=== PATIENT | female | born 1940 | race Caucasian/White ===

== ENCOUNTER → 2017-12-13 08:44 | Outpatient (CLI) | payer MEDICARE, OTHER ==
--- NOTE | ~2017-12-13 | EC ---
PATIENT:JEROME MAZARIEGOS DATE OF SERVICE: 12/13/17 SEX: F MEDICAL RECORD: [id number] DATE OF : 42 LOCATION:D.RT AGE OF PATIENT: 77 ADMISSION DATE: 12/13/17 REFERRING PHYSICIAN: INTERPRETING PHYSICIAN: SALLY KEANE MD ECHOCARDIOGRAM REPORT ECHO CHARGES 4 ECHO COMPLETE Date: 12/13 CLINICAL DIAGNOSIS: PULMONARY HTN/COPD/ IDIOPATHIC PULMONARY FIBROSIS ECHOCARDIOGRAPHIC MEASUREMENTS (adult normal given) AC root (d.<3.7cm) 3.3 cm LV Septum d (<1.2 cm> 1.5 cm Valve Excursion 1.9 cm LV Septum (systole) 1.9 cm Left Atria (s.<4.0cm> 3.6 cm LVPW d(<1.2cm) 1.2 cm RV (d.<2.3cm) 2.5 cm LVPW (sytole) 1.8 cm LV diastole(<5.6CM) 5.3 cm MV E-F(>70mm/sec) cm LV systole 3.4 cm LVOT Diameter 1.9 cm MV exc.(>10mm) cm Est.ejection fraction (50-75%) % DOPPLER: LVIT cm/sec A 40.0 cm/sec E 105 cm/sec LA cm/sec RVSP 98.1 mmHg LVOT 86.0 cm/sec AOP1/2T 510.0m/s Asc. Ao 141 cm/sec RVOT 59.0 cm/sec RA cm/sec PA 77.0 cm/sec AV Gradient Peak 8.0 mmHg AV Mean 3.6 mmHg AV Area 1.7 cm MV Gradient Peak 6.0 mmHg MV Mean 1.9 mmHg MV Area cm COMMENTS: Clinical Specialty Rep: 1 NIRMAL WELLERDSOE Drug Department Worker: 4 Dr. Keane TAPE# PACS Pericardial Effusion N DATE OF SERVICE: PROCEDURE: Transthoracic echocardiogram. FINDINGS: 1. Left ventricle has moderate concentric left ventricular hypertrophy, ejection fraction 50% to 55%. Inflow characteristics are abnormal, but in a pseudonormal pattern. 2. The left atrium is upper limits of normal. 3. The aortic valve, there is mild aortic insufficiency, but otherwise normal. ECHOCARDIOGRAM REPORT [id number] JEROME MAZARIEGOS 4. The mitral valve has severe centrally directed mitral regurgitation. 5. The pericardium is normal. 6. The right ventricle is mildly dilated. 7. The right atrium is mildly dilated. 8. The tricuspid valve has severe tricuspid regurgitation. RVSP is between 90 and 100 mmHg. CONCLUSIONS: The patient has severe mitral regurgitation, severe pulmonary hypertension, severe tricuspid regurgitation. Further evaluation and treatment may be reasonable in this patient. TRANSINT:[id number] Voice Confirmation ID: [id number] DOCUMENT ID: [id number] SALLY KEANE MD at 0819 CC: [id number] DICTATION DATE: 12/14/17826 LICENSED PSYCHOLOGIST MANAGER: 12/14/17 1405 DEP CLI 12/13/17 [facility] [address] [place] [address]
== END | disposition home or self-care (01) ==
LOC: D.RT 08:44
DX: J84.112 Idiopathic pulmonary fibrosis (principal)

== ENCOUNTER → 2018-04-24 16:08 | Outpatient (CLI) | payer MEDICARE, OTHER | END | disposition home or self-care (01) | LOC: D.MRI 16:08 | DX: M54.16 Radiculopathy, lumbar region (principal) ==

== ENCOUNTER → 2018-06-11 09:06 | Outpatient (CLI) | payer MEDICARE, OTHER ==
--- NOTE | ~2018-06-11 | EC ---
PATIENT:JEROME MAZARIEGOS DATE OF SERVICE: 06/11/18 SEX: F MEDICAL RECORD: [id number] DATE OF : 42 LOCATION:D.RT AGE OF PATIENT: 77 ADMISSION DATE: 06/11/18 REFERRING PHYSICIAN: INTERPRETING PHYSICIAN: TRAMAINE WOOTEN MD ECHOCARDIOGRAM REPORT ECHO CHARGES 4 ECHO COMPLETE Date: 06/11/18 CLINICAL DIAGNOSIS: COPD/PULMONARY FIBROSIS/ ARTERIAL HTN ECHOCARDIOGRAPHIC MEASUREMENTS (adult normal given) AC root (d.<3.7cm) 3.7 cm LV Septum d (<1.2 cm> 1.0 cm Valve Excursion 2.0 cm LV Septum (systole) 1.7 cm Left Atria (s.<4.0cm> 5.0 cm LVPW d(<1.2cm) 1.1 cm RV (d.<2.3cm) 2.3 cm LVPW (sytole) 1.7 cm LV diastole(<5.6CM) 6.1 cm MV E-F(>70mm/sec) cm LV systole 3.7 cm LVOT Diameter 1.9 cm MV exc.(>10mm) cm Est.ejection fraction (50-75%) % DOPPLER: LVIT cm/sec A 38.0 cm/sec E 103 cm/sec LA cm/sec RVSP 64.0 mmHg LVOT 76.0 cm/sec AOP1/2T m/s Asc. Ao 113 cm/sec RVOT 80.0 cm/sec RA cm/sec PA 92.0 cm/sec AV Gradient Peak 5.2 mmHg AV Mean 2.4 mmHg AV Area 1.7 cm MV Gradient Peak 4.9 mmHg MV Mean 1.6 mmHg MV Area cm COMMENTS: Feeder Switchboard Operator: Yessenia POOLEOE Field Coordinator: 1 Dr. Wooten TAPE# PACS Pericardial Effusion N DATE OF SERVICE: 06/11/2018 PROCEDURE: Echocardiogram FINDINGS: 1. Left ventricular chamber size is mildly dilated. Left ventricular systolic function is preserved at 55%. 2. Left atrium is enlarged at 5.0 cm. Right atrium and right ventricle chamber sizes are as well moderately dilated. 3. Valvular structures have normal structure and motion. ECHOCARDIOGRAM REPORT [id number] JEROME MAZARIEGOS 4. Doppler interrogation reveals trace aortic insufficiency, moderate mitral regurgitation, [id number] tricuspid regurgitation, no other valvular insufficiency or stenosis. Pulmonary systolic pressure is elevated estimated 64 mmHg. 5. No evidence of pericardial effusion or left ventricular thrombus. TRANSINT:[id number] Voice Confirmation ID: [id number] DOCUMENT ID: [id number] TRAMAINE WOOTEN MD at 1059 CC: [id number] DICTATION DATE: 06/11/18 1254 BLOW MOLD TECHNICIAN: 06/11/18 1406 DEP CLI 06/11/18 [place] [id number] [place] [id number]
== END | disposition home or self-care (01) ==
LOC: D.RT 09:00
DX: J84.112 Idiopathic pulmonary fibrosis (principal); J44.9 Chronic obstructive pulmonary disease, unspecified; I27.0 Primary pulmonary hypertension

== ENCOUNTER → 2018-06-22 16:42 | Outpatient (CLI) | payer MEDICARE, OTHER | END | disposition home or self-care (01) | LOC: D.LABREF 16:42 | DX: M19.011 Primary osteoarthritis, right shoulder (principal); Z11.8 Encounter for screening for other infectious and parasitic diseases ==

== ENCOUNTER 2018-08-09 10:44 | Inpatient (IN) | payer MEDICARE, OTHER ==
[~2018-08-09] VITALS: Ht 165.1 cm; Wt 74.4 kg
--- NOTE | ~2018-08-09 | OP ---
PATIENT NAME: JEROME MAZARIEGOS MEDICAL RECORD: [id number] :42 LOCATION:D.MS Aragon2229 ADMISSION DATE:08/13/18 SURGEON: CAROL QUEZADA MD DATE OF OPERATION: 08/14/2018 PREOPERATIVE DIAGNOSIS: Postoperative dislocation of a right reverse total shoulder arthroplasty. POSTOPERATIVE DIAGNOSIS: Postoperative dislocation of a right reverse total shoulder arthroplasty. PROCEDURE: Revision right reverse total shoulder arthroplasty. SURGEON: Carol Quezada MD. ALUMNI SECRETARY: Oscar Rivas APN. INTRAOPERATIVE COMPLICATIONS: Essentially none. SUMMARY OF PATHOLOGIC FINDINGS: It was found at the time of surgery that the patient had a soft tissue bony prominence at the base of the metaglene causing levering of the inferior aspect of the polyethylene causing a dislocation. This was not appreciated at the time of the original operation; however, postoperative radiographs did show the patient to be dislocated. It was relocated and was very easily dislocated. As the patient already had something by mouth, we scheduled for the following morning. ESTIMATED BLOOD LOSS: 200 cc. OPERATIVE SUMMARY IN DETAIL: After obtaining the appropriate preoperative orthopedic surgery consent as well as anesthetic consultation, evaluation, and clearance, the patient was brought to the operating room and placed on the operating table in supine position. After general laryngeal mask airway was administered, the patient was placed in beach chair position. All pressure points were well padded. She was held firmly to the operating table using the vacuum pack suction system. Right upper extremity and shoulder were then prepped and draped in routine sterile fashion. The arm was held in Trimano arm holding device from [employer]. The previously placed staple was removed. Incision was recreated down the old incision line, which had not even begun to heal. Deltopectoral interval was reopened. Cephalic vein was visualized and because of hemorrhage from the cephalic vein, medium Hemoclips were applied. The deltoid was then retracted and the shoulder was easily reduced; however, was easily dislocated again. The polyethylene was removed as was the proximal body of the Arthrex device. The glenosphere was then easily removed using the glenosphere removal device. Having completed this, examination was carried out and again the inferior aspect of the glenoid had a bony and labral prominence. The bony labral prominence was very gently taken down. Care was taken to avoid any damage to the axillary nerve. Having completed this, I felt like the inferior aspect was clear of any impinging debris as was the anterior inferior as well as posterior inferior. At this point, the wound was copiously irrigated and then a 36 mm 2 inferior offset was then tamped over the metaglene with good position and placement and it was fixated firmly with the center screw. Next, the proximal body was rearticulated to 135 degree and the trials were undertaken and it was felt that the 6 mm constrained liner would give this patient excellent control. This was popped into place. The shoulder was reduced, taken OPERATIVE REPORT [id number] JEROME MAZARIEGOS through a range of motion and at this point was essentially very stable without any inferior impingement. The wound was then copiously irrigated. Deltopectoral interval was closed along with the skin with #1 Vicryl, 2-0 Vicryl, and skin eloy. This was completed by Oscar Rivas. Sterile dressings were applied. The patient was awakened and taken to the recovery room in stable condition. All final needle and sponge counts were correct. TRANSINT:[id number] Voice Confirmation ID: [id number] DOCUMENT ID: [id number] PILAR SIMON, CAROL FREDERICK CC: [id number] DICTATION DATE: 08/17/18 0958 COMMERCIAL LOAN CLOSER: 08/17/18 1249 DIS IN 08/15/18 [facility] [address] [facility] [place] [address]
[2018-08-09] MEDS ORDERED: NEXIUM40 MG PO (11:06)
[2018-08-09] MEDS ORDERED: PREDNISONE20 MG PO (11:06)
[2018-08-09] MEDS ORDERED: BAYER CHEWABLE81 MG PO (11:07)
[2018-08-09] MEDS ORDERED: FOLIC ACID1 MG PO (11:07)
[2018-08-09] MEDS ORDERED: L-LYSINE500 M1 PO (11:07)
[2018-08-09] MEDS ORDERED: OPSUMIT PO (11:08)
[2018-08-09] MEDS ORDERED: ATROVENT 0.02%2.5 ML (11:08)
[2018-08-09] MEDS ORDERED: VOLTAREN100 GM TOPICAL (11:09)
[2018-08-09] MEDS ORDERED: MULTAQ400 MG PO (11:09)
[2018-08-09] MEDS ORDERED: ELIQUIS5 MG PO (11:09)
[2018-08-09] MEDS ORDERED: ADEMPAS PO (11:10)
[2018-08-09] MEDS ORDERED: NEURONTIN 300300 MG PO (11:11)
[2018-08-09] MEDS ORDERED: ACETAMINOPHEN500 M1 PO (11:11)
[2018-08-09] MEDS ORDERED: ZOLOFT50 MG PO (11:11)
[2018-08-09] MEDS ORDERED: INTEGRA CAPSUL1 EACH PO (11:12)
[2018-08-09] MEDS ORDERED: FLUTICASONE PRO16 GM NASAL (11:13)
[2018-08-09] MEDS ORDERED: TOPROL XL25 MG PO (11:13)
[2018-08-09] MEDS ORDERED: SINGULAIR10 MG PO (11:13)
[2018-08-09] MEDS ORDERED: PRAVASTATIN SOD10 MG PO (11:14)
[2018-08-09] MEDS ORDERED: VITAMIN D5000 UNIT PO (11:14)
[2018-08-09] MEDS ORDERED: VITAMIN B-121000 MCG PO (11:15)
[2018-08-09] MEDS ORDERED: XIDRA (11:15)
[2018-08-09] MEDS ORDERED: FUROSEMIDE20 MG PO (11:16)
[2018-08-09] MEDS ORDERED: BROVANA15 MCG/2 M INH (11:16)
[2018-08-09] MEDS ORDERED: KLOR-CON M1515 MEQ PO (11:17)
[2018-08-09 12:45] LABS: BASOPHILS 0.4 % (0-2); HEMATOCRIT 35.4 % (36.0-48.0); HEMOGLOBIN 11.5 g/dL (12-16); IMMATURE GRANULOCYTES 0.3 % (0-5); LYMPHOCYTES 12.5 % (15-50); MCH 29.3 pg (26.0-34.0); MCHC 32.5 g/dL (31.0-37.0); MCV 90.3 fL (80.0-100.0); MEAN PLATELET VOLUME 9.8 fL (7.4-10.4); MONOCYTES 6.7 % (2-11); NEUTROPHILS 76.1 % (40-80); PLATELET COUNT 241 10x3/uL (130-400); RBC 3.92 10x6/uL (4.00-5.40); RDW 14.8 % (11.5-14.5); WBC 9.1 10x3/uL (4.8-10.8)
[2018-08-09 12:56] LABS: ANION GAP 14.1 mmol/L (8-16); CALCIUM 9.1 mg/dL (8.5-10.1); CARBON DIOXIDE 23.8 mmol/L (21.0-32.0); CREATININE - SERUM 0.9 mg/dL (0.6-1.3); POTASSIUM - SERUM 3.9 mmol/L (3.5-5.1)
[2018-08-09 13:02] LABS: APTT 34.5 SECONDS (22.8-39.4); INR 1.32 (0.85-1.17); PROTIME 15.8 SECONDS (11.6-15.0)
[2018-08-09 13:16] LABS: APPEARANCE CLEAR (CLEAR); BACTERIA FEW /hpf (NONE SEEN); BILIRUBIN NEGATIVE (NEGATIVE); COLOR YELLOW (YELLOW); EPITHELIAL CELLS OCC /hpf (0-5); GLUCOSE NEGATIVE (NEGATIVE); KETONE NEGATIVE (NEGATIVE); NITRITE NEGATIVE (NEGATIVE); PROTEIN NEGATIVE (NEGATIVE); RED CELLS - URINE 0-5 /hpf (0-5); SPECIFIC GRAVITY 1.025 (1.005-1.020); UROBILINOGEN NORMAL (NORMAL); WHITE CELLS - URINE 0-5 /hpf (0-5)
[2018-08-13 08:37] VITALS: BP 150/67; BMI 25.6
[2018-08-14] VITALS (12 sets, daily range): BP systolic 99–152; BP diastolic 47–87; Ht 165.1 cm; Wt 74.4 kg
[2018-08-14 05:53] LABS: HEMATOCRIT 30.4 % (36.0-48.0); HEMOGLOBIN 9.8 g/dL (12-16); MCH 28.8 pg (26.0-34.0); MCHC 32.2 g/dL (31.0-37.0); MCV 89.4 fL (80.0-100.0); MEAN PLATELET VOLUME 9.7 fL (7.4-10.4); RBC 3.4 10x6/uL (4.00-5.40); RDW 14.4 % (11.5-14.5); WBC 13.2 10x3/uL (4.8-10.8)
--- NOTE | 2018-08-14 16:43 | OP ---
PATIENT NAME: JEROME MAZARIEGOS MEDICAL RECORD: [id number] :42 LOCATION:D.MS [address]2229 ADMISSION DATE:08/13/18 SURGEON: CAROL QUEZADA MD DATE OF OPERATION: 08/13/2018 PREOPERATIVE DIAGNOSIS: Chronic rotator cuff arthropathy of the right shoulder. POSTOPERATIVE DIAGNOSIS: Chronic rotator cuff arthropathy of the right shoulder. PROCEDURE: Right reverse total shoulder arthroplasty. SURGEON: Carol Quezada MD PLUMBING CONTRACTOR: BRITTNEY Torres INTRAOPERATIVE COMPLICATIONS: None. SUMMARY OF PATHOLOGIC FINDINGS: The patient had severe rotator cuff arthropathy with no rotator cuff essentially from the subscap coming from the supraspinatus back to the teres minor. The subscapularis was almost torn. This was reconstructed at the time of surgery. IMPLANTS USED: The Arthrex Univers reverse total shoulder arthroplasty system with a modular glenoid locking system. The patient required a size 24+2 lateralization modular baseplate, a size 3 x 33 humeral insert, size 9 reverse humeral stem, +2 right 36 cup, and a 33/24 glenosphere. ESTIMATED BLOOD LOSS: 200 cc. OPERATIVE SUMMARY IN DETAIL: After obtaining the appropriate preoperative orthopedic surgery consent as well as anesthetic consultation, evaluation, and clearance, the patient was brought to the operating room and placed on the operating table in supine position. After adequate general laryngeal mask airway was administered, the patient was placed in a beach chair position. All pressure points were well padded. She was held firmly to the operating table using the vacuum pack suction system. After the appropriate position and placement done by Madi Rivas, the patient's right upper extremity was prepped and draped in a routine sterile fashion. The arm was held in the Trimano arm holding device. Next, a superficial dissection was also carried out by Madi Rivas. Deep dissection was carried out by Dr. Quezada (ca). Deltoid was retracted over the humeral head using the brown retractor. The conjoint tendon was gently retracted medially. Subscapularis although in very poor condition was reflected and maintained for reapproximation to the lesser tuberosity at the closure of the case. At this point, the humeral head was dislocated into the field. Humeral head cut was made using the humeral head cutting guide for the modular reverse system. Serial and sequential reaming and broaching were then followed by placement of the head protector and the glenoid was then approached. Complete circumferential labrectomy was followed by placement of the guide pin and following the guide pin placement, the appropriate reaming was carried out. Following this, central groove was followed by tapping for a size 25 post-augmented screw. The 25 post-augment was then put into place using the compression system on the back table and the baseplate was then entered with good fit and fill. The "Adiel gun" guide was then utilized for peripheral screw fixation using 24 anteriorly, 36 posteriorly, and a 36 inferiorly. OPERATIVE REPORT [id number] JEROME MAZARIEGOS Excellent fixation was achieved. At this point, the glenosphere was put into place tamped on the Fishman taper. Good fixation was achieved across the Fishman taper. Finally, attention was then returned to the stem. The stem was then put into place. Trial was undertaken. It was felt like the +3 provided the appropriate tension. The shoulder was taken through range of motion and found to have no liftoff and good stability in all planes. The subscapularis was then reapproximated to residual lesser tuberosity using #2 Ethibond. This was followed by irrigation and closure of the deltopectoral incision with #1 Vicryl, 2-0 Vicryl, and skin eloy. This was performed by Madi Rivas. Sterile dressings were applied. The patient was awakened, taken to recovery room in stable condition. All final needle and sponge counts were correct. TRANSINT:[id number] Voice Confirmation ID: [id number] DOCUMENT ID: [id number] PILAR SIMON, CAROL FREDERICK at 1643 CC: [id number] DICTATION DATE: 08/14/1840 FRINGE WEAVER: 08/14/18 0951 [facility] [address] [place] [address]
[2018-08-15 04:00] VITALS: BP 125/56
[2018-08-15 05:03] LABS: HEMATOCRIT 26.7 % (36.0-48.0); HEMOGLOBIN 8.4 g/dL (12-16); MCH 28.8 pg (26.0-34.0); MCHC 31.5 g/dL (31.0-37.0); RBC 2.92 10x6/uL (4.00-5.40); RDW 14.5 % (11.5-14.5); WBC 10.7 10x3/uL (4.8-10.8)
[2018-08-15 05:16] LABS: MCV 91.4 fL (80.0-100.0)
[2018-08-15 08:34] VITALS: BP 118/54
[2018-08-15] MEDS ORDERED: NORCO 10-325 TA1 TAB PO (08:54)
--- NOTE | 2018-08-15 09:37 | MORECARE ---
CASE MANAGEMENT DISCHARGE SUMMARY PATIENT: JEROME MAZARIEGOS UNIT: [id number] ADM DATE: 08/13/18 AGE: 78 : 41 SEX: F ROOM/BED: D.2229 AUTHOR: MIHAELA EL PHYSICIAN: REFERRING PHYSICIAN: CAROL QUEZADA MD DATE OF SERVICE: 08/15/18 Discharge Plan Patient Name: JEROME MAZARIEGOS Facility: [facility]:[place] : 1940 Planned Disposition: Home Anticipated Discharge Date: Discharge Date: Expected LOS: Initial Reviewer: [email or web address] Initial Review Date: 08/15/2018 Generated: 08/15/18 10:37 am Patient Name: JEROME MAZARIEGOS Page [phone] at 0937 All edits/amendments must be made on the electronic document DICTATION DATE: 08/15/18936 DIRECTOR OF SURGERY: TANNA 08/15/1837 RPT#: [id number] DC DATE: STATUS: ADM IN [facility] [address] [place] [address] END OF REPORT
--- NOTE | 2018-08-15 09:44 | MORECARE ---
CASE MANAGEMENT DISCHARGE SUMMARY PATIENT: JEROME MAZARIEGOS UNIT: [id number] ADM DATE: 08/13/18 AGE: 78 : 41 SEX: F ROOM/BED: D.2229 AUTHOR: MIHAELA EL PHYSICIAN: REFERRING PHYSICIAN: CAROL QUEZADA MD DATE OF SERVICE: 08/15/18 Discharge Plan Patient Name: JEROME MAZARIEGOS [facility] [facility] 1940 Planned Disposition: Home Anticipated Discharge Date: Discharge Date: Expected LOS: Initial Reviewer: [email or web address] Initial Review Date: 08/15/2018 Generated: 08/15/18 10:44 am Last DP export: 08/15/18 8:37 am Patient Name: JEROME MAZARIEGOS Page [phone] at 0944 All edits/amendments must be made on the electronic document DICTATION DATE: 08/15/18942 TAILER IN: DM 08/15/18942 RPT#: [id number] DC DATE: STATUS: ADM IN [facility] [address] [place] [address] END OF REPORT
--- NOTE | 2018-08-15 09:51 | MORECARE ---
CASE MANAGEMENT DISCHARGE SUMMARY PATIENT: JEROME MAZARIEGOS UNIT: [id number] ADM DATE: 08/13/18 AGE: 78 : 41 SEX: F ROOM/BED: D.2229 AUTHOR: MIHAELA EL PHYSICIAN: REFERRING PHYSICIAN: CAROL QUEZADA MD DATE OF SERVICE: 08/15/18 Discharge Plan Patient Name: JEROME MAZARIEGOS Facility: [facility]:[place] : 1940 Planned Disposition: Home Anticipated Discharge Date: Discharge Date: Expected LOS: Initial Reviewer: [email or web address] Initial Review Date: 08/15/2018 Generated: 08/15/18 10:51 am DCPIA - Discharge Planning Initial Assessment Updated by [email or web address]: Renate Skinner on 08/15/18 9:49 am * Is the patient Alert and Oriented? Yes * How many steps to enter\exit or inside your home? few/0 * PCP Trever * Pharmacy [facility] * Preadmission Environment Home Alone * ADLs Partial Dependent * Partial ADLs (Assistance needed) Ambulation * Equipment Hospital Bed Nebulizer Other Oxygen Walker * Other Equipment Lift chair portable oxygen sling * List name and contact numbers for known caregivers / representatives who currently or will assist patient after discharge: [facility] - [phone] * Verbal permission to speak to the caregivers and representatives has been obtained from the patient. Yes * Community resources currently utilized None * Additional services required to return to the preadmission environment? No * Can the patient safely return to the preadmission environment? Yes * Has this patient been hospitalized within the prior 30 days at any hospital? No Last DP export: 08/15/18 8:44 am Patient Name: JEROME MAZARIEGOS Page 14700 at 0951 All edits/amendments must be made on the electronic document DICTATION DATE: 08/15/18950 SHUTTLE HAND: TANNA 08/15/18950 RPT#: [id number] DC DATE: STATUS: ADM IN [facility] [address] [place] [address] END OF REPORT
--- NOTE | 2018-08-15 09:59 | MORECARE ---
CASE MANAGEMENT DISCHARGE SUMMARY PATIENT: JEROME MAZARIEGOS UNIT: [id number] ADM DATE: 08/13/18 AGE: 78 : 41 SEX: F ROOM/BED: D.2229 AUTHOR: SIENNA,DOC PHYSICIAN: REFERRING PHYSICIAN: CAROL QUEZADA MD DATE OF SERVICE: 08/15/18 Discharge Plan Patient Name: JEROME MAZARIEGOS Facility: [facility]:[place] : 1940 Planned Disposition: Home Anticipated Discharge Date: Discharge Date: Expected LOS: Initial Reviewer: [email or web address] Initial Review Date: 08/15/2018 Generated: 08/15/18 10:59 am Comments DCP- Discharge Planning Updated by [email or web address]: Renate Skinner on 08/15/18 8:[address] Patient Name: JEROME MAZARIEGOS Admission Status: Elective Accout number: [id number] Admission Date: 08-13-2018 : 1940 Admission Diagnosis: Attending: CAROL QUEZADA Current LOS: 2 Anticipated DC Date: Planned Disposition: Home Primary Insurance: MEDICARE A & B Discharge Planning Comments: CM met with patient and her daughter to discuss discharge plan. She lives alone, but her daughter is going to be staying with her for "the next couple of days." States her son lives next door. States she is independent with all ADL's and IADL's. States her son or daughter will drive her where she needs to go until she can drive again. She uses oxygen at night and prn. Her oxygen supplies and nebulizer come from [facility]. Discussed home health and she does not want home health at this time. Daughter states she can assist. Instructed to call Dr. Perera's office if she feels she needs home health after discharge. CM will continue to follow and assist with discharge planning/needs. Office Workforce Planner: Renate Skinner DCPIA - Discharge Planning Initial Assessment Updated by [email or web address]: Renate Skinner on 08/15/18 9:49 am * Is the patient Alert and Oriented? Yes * How many steps to enter\\exit or inside your home? few/0 * PCP Trever * Pharmacy [facility] [address] * Preadmission Environment Home Alone * ADLs Partial Dependent * Partial ADLs (Assistance needed) Ambulation * Equipment Hospital Bed Nebulizer Other Oxygen Walker * Other Equipment Lift chair portable oxygen sling * List name and contact numbers for known caregivers / representatives who currently or will assist patient after discharge: Maegan Sullivan - DTR - [phone] * Verbal permission to speak to the caregivers and representatives has been obtained from the patient. Yes * Community resources currently utilized None * Additional services required to return to the preadmission environment? No * Can the patient safely return to the preadmission environment? Yes * Has this patient been hospitalized within the prior 30 days at any hospital? No Last DP export: 08/15/18 8:51 am Patient Name: JEROME MAZARIEGOS Page 28148 at 0959 All edits/amendments must be made on the electronic document DICTATION DATE: 08/15/18957 PHOTOENGRAVING FINISHER: TANNA 08/15/18957 RPT#: [id number] DC DATE: STATUS: ADM IN [facility] [address] [place] [address] END OF REPORT
--- NOTE | 2018-08-15 16:37 | MORECARE ---
CASE MANAGEMENT DISCHARGE SUMMARY PATIENT: JEROME MAZARIEGOS UNIT: [id number] ADM DATE: 08/13/18 AGE: 78 : 41 SEX: F ROOM/BED: D.2229 AUTHOR: SIENNA,DOC PHYSICIAN: REFERRING PHYSICIAN: CARLO QUEZADA MD DATE OF SERVICE: 08/15/18 Discharge Plan Patient Name: JEROME MAZARIEGOS Facility: [facility]:[place] : 1940 Planned Disposition: Home Anticipated Discharge Date: Discharge Date: 08/15/2018 Expected LOS: 0 Initial Reviewer: [email or web address] Initial Review Date: 08/15/2018 Generated: 08/15/18 5:36 pm Comments DCP- Discharge Planning Updated by [email or web address]: Renate Skinner on 08/15/18 8:[address] Patient Name: JEROME MAZARIEGOS Admission Status: Elective Accout number: [id number] Admission Date: 08-13-2018 : 1940 Admission Diagnosis: Attending: CAROL QUEZADA Current LOS: 2 Anticipated DC Date: Planned Disposition: Home Primary Insurance: MEDICARE A & B Discharge Planning Comments: CM met with patient and her daughter to discuss discharge plan. She lives alone, but her daughter is going to be staying with her for "the next couple of days." States her son lives next door. States she is independent with all ADL's and IADL's. States her son or daughter will drive her where she needs to go until she can drive again. She uses oxygen at night and prn. Her oxygen supplies and nebulizer come from [facility]. Discussed home health and she does not want home health at this time. Daughter states she can assist. Instructed to call Dr. Perera's office if she feels she needs home health after discharge. CM will continue to follow and assist with discharge planning/needs. Table Inspector: Renate Skinner DCPIA - Discharge Planning Initial Assessment Updated by [email or web address]: Renate Skinner on 08/15/18 9:49 am * Is the patient Alert and Oriented? Yes * How many steps to enter\\exit or inside your home? few/0 * PCP Trever * Pharmacy [facility] [address] * Preadmission Environment Home Alone * ADLs Partial Dependent * Partial ADLs (Assistance needed) Ambulation * Equipment Hospital Bed Nebulizer Other Oxygen Walker * Other Equipment Lift chair portable oxygen sling * List name and contact numbers for known caregivers / representatives who currently or will assist patient after discharge: Maegan Sullivan - DTR - [phone] * Verbal permission to speak to the caregivers and representatives has been obtained from the patient. Yes * Community resources currently utilized None * Additional services required to return to the preadmission environment? No * Can the patient safely return to the preadmission environment? Yes * Has this patient been hospitalized within the prior 30 days at any hospital? No Last DP export: 08/15/18 8:59 am Patient Name: JEROME MAZARIEGOS Page 09452 at 1637 All edits/amendments must be made on the electronic document DICTATION DATE: 08/15/18 1636 RESEARCH ADVISOR: TANNA 08/15/18 1636 RPT#: [id number] DC DATE:08/15/18 STATUS: DIS IN [facility] [address] [place] [address] END OF REPORT
== END 2018-08-15 10:00 | disposition home or self-care (01) | DRG 483 ==
LOC: D.SDCHOLD 10:44 → D.MS 08-13 08:00 → D.SDCHOLD 08-13 09:30 → D.MS 08-13 20:10
PROVIDERS: ADMIT Orthopaedic Surgery
PROC: 0RRJ00Z Replacement of Right Shoulder Joint with Reverse Ball and Socket Synthetic Substitute, Open Approach (ICD-10-PCS; principal; 2018-08-13 10:00)
PROC: 0RRJ0J7 Replacement of Right Shoulder Joint with Synthetic Substitute, Glenoid Surface, Open Approach (ICD-10-PCS; 2018-08-14)
PROC: 0RPJ0JZ Removal of Synthetic Substitute from Right Shoulder Joint, Open Approach (ICD-10-PCS; 2018-08-14)
DX: M12.811 Other specific arthropathies, not elsewhere classified, right shoulder (principal); T84.028A Dislocation of other internal joint prosthesis, initial encounter

== ENCOUNTER 2018-10-01 09:44 | Day surgery (SDC) | payer MEDICARE, OTHER ==
[~2018-10-01] VITALS: Ht 165.1 cm; Wt 72.1 kg
[~2018-10-01 09:44] MED LIST: ACETAMINOPHEN500 M1 PO; ADEMPAS PO; ATROVENT 0.02%2.5 ML; BAYER CHEWABLE81 MG PO; BROVANA15 MCG/2 M INH; ELIQUIS5 MG PO; FLUTICASONE PRO16 GM NASAL; FOLIC ACID1 MG PO; FUROSEMIDE20 MG PO; INTEGRA CAPSUL1 EACH PO; KLOR-CON M1515 MEQ PO; L-LYSINE500 M1 PO; MULTAQ400 MG PO; NEURONTIN 300300 MG PO; NEXIUM40 MG PO; NORCO 10-325 TA1 TAB PO; OPSUMIT PO; PRAVASTATIN SOD10 MG PO; PREDNISONE20 MG PO; SINGULAIR10 MG PO; TOPROL XL25 MG PO; VITAMIN B-121000 MCG PO; VITAMIN D5000 UNIT PO; VOLTAREN100 GM TOPICAL; XIDRA; ZOLOFT50 MG PO
[2018-10-01 10:11] LABS: BASOPHILS 0.3 % (0-2); HEMATOCRIT 33.1 % (36.0-48.0); HEMOGLOBIN 10.1 g/dL (12-16); LYMPHOCYTES 15.4 % (15-50); MCHC 30.5 g/dL (31.0-37.0); MCV 88.5 fL (80.0-100.0); MEAN PLATELET VOLUME 9.1 fL (7.4-10.4); MONOCYTES 7.9 % (2-11); NEUTROPHILS 69.4 % (40-80); RBC 3.74 10x6/uL (4.00-5.40); RDW 14.9 % (11.5-14.5); WBC 7.5 10x3/uL (4.8-10.8)
[2018-10-01 10:12] LABS: PLATELET COUNT 251 10x3/uL (130-400)
[2018-10-01 10:27] LABS: ANION GAP 15.3 mmol/L (8-16); CREATININE - SERUM 0.8 mg/dL (0.6-1.3); POTASSIUM - SERUM 4.3 mmol/L (3.5-5.1)
[2018-10-01 11:39] VITALS: BP 167/70; Ht 165.1 cm; Wt 72.1 kg
--- NOTE | 2018-10-01 13:13 | NUR ---
1310 [place] DIET SERVED. SON AT SIDE. DR. MARITO LIM.
--- NOTE | 2018-10-01 15:08 | OP ---
PATIENT NAME: JEROME MAZARIEGOS MEDICAL RECORD: [id number] :41 LOCATION:[facility] ADMISSION DATE: SURGEON: ISATU DEVI DO DATE OF OPERATION: 10/01/2018 PROCEDURE: EGD with biopsies. INDICATIONS FOR PROCEDURE: Gastroesophageal reflux disease. SCOPE: Olympus video gastroscope. MEDICATIONS: Propofol 100 mg IV per anesthesia. ESTIMATED BLOOD LOSS: Minimal. COMPLICATIONS: None. FINDINGS: Informed consent was given. The patient was made comfortable with the above medication. After reaching an adequate level of sedation by slow IV push, the patient was placed on her left side. The endoscope was advanced under direct visualization through the mouth to the second portion of the duodenum. The upper, middle, and lower thirds of the esophagus appeared normal. At the GE junction, there was mild evidence of LA class A reflux-induced esophagitis. The endoscope was advanced beyond the GE junction into the stomach and retroflexed to view the cardia. The patient has a moderate-sized mixed type hiatal hernia. There was a small pocket with some retained food present. There was some associated erythema and inflammation at the distal edge of the hernia, but there were no ulcerations. The body of the stomach appeared normal. In the antrum and prepyloric region, there was some mild granularity and erythema consistent with possible gastritis. Random cold forceps biopsies were taken to submit for histopathology and to rule out the presence of H. pylori. The endoscope was advanced beyond the pylorus into the duodenum. The entire examined duodenum appeared normal down to the second portion. The endoscope was withdrawn from the patient. The patient tolerated the procedure well and there were no complications. IMPRESSION: 1. LA class A reflux-induced esophagitis. 2. Moderate-sized mixed hiatal hernia. 3. Mild gastritis. Biopsies taken. PLAN AND RECOMMENDATIONS: 1. Discharge home when recovery parameters are met. 2. Follow up biopsy specimen results. 3. GERD diet and reflux precautions. 4. Continue Nexium 40 mg daily for established reflux. 5. If symptoms are uncontrolled while on medications, consider surgical correction of hiatal hernia. 6. The patient's symptoms are currently controlled on Nexium 40 mg daily. If we lose response to this, consider a barium esophagram to establish size of hiatal hernia and make surgery referral. TRANSINT:[id number] Voice Confirmation ID: [id number] DOCUMENT ID: [id number] OPERATIVE REPORT [id number] JEROME MAZARIEGOS,ISATU Kimball DO at 1508 CC: [id number] DICTATION DATE: 10/01/18 1240 [employer] AIRCREWMAN: 10/01/18 1255 [facility] 10/01/18 [place] [id number] [place] [id number]
== END 2018-10-01 13:55 | disposition home or self-care (01) ==
LOC: D.OPS 09:44
PROVIDERS: Anesthesiology; ATTEND Internal Medicine Gastroenterology
DX: K21.0 Gastro-esophageal reflux disease with esophagitis (principal); K44.9 Diaphragmatic hernia without obstruction or gangrene; K29.50 Unspecified chronic gastritis without bleeding; Z01.812 Encounter for preprocedural laboratory examination

== ENCOUNTER 2018-10-29 08:00 | Day surgery (SDC) | payer MEDICARE, OTHER ==
[~2018-10-29] VITALS: Ht 165.1 cm; Wt 72.3 kg
--- NOTE | ~2018-10-29 | OP ---
PATIENT NAME: JEROME MAZARIEGOS MEDICAL RECORD: [id number] :41 LOCATION:[facility] ADMISSION DATE: SURGEON: ISATU DEVI DO DATE OF OPERATION: 10/29/2018 PROCEDURE: Colonoscopy with polypectomy. INDICATIONS FOR PROCEDURE: Screening for colorectal cancer. The patient's last colonoscopy was approximately 2007. SCOPE: Olympus video pediatric colonoscope. MEDICATIONS: Propofol 400 mg IV per anesthesia. WITHDRAWAL TIME: 21 minutes. ESTIMATED BLOOD LOSS: Minimal. COMPLICATIONS: None. FINDINGS: Informed consent was given. The patient was made comfortable with the above medication. After reaching an adequate level of sedation by slow IV push, the patient was placed on her left side. A digital rectal examination was performed and was normal. The endoscope was then advanced under direct visualization through the rectum to the cecum, confirmed by the presence of the appendiceal orifice and ileocecal valve. The endoscope was slowly withdrawn and the mucosa was carefully examined. There were 5 polyps removed on today's examination. Two of these were located in the ascending colon. They were both benign appearing and sessile and ranged in size from 3-5 mm in diameter. They were both removed using a hot snare. In the transverse colon, there were two separate polyps, which were benign-appearing and sessile and ranged in size from 3-5 mm in diameter. One was removed using hot forceps and the other was removed using a hot snare. In the descending colon, there was a single benign appearing sessile polyp, which measured approximately 4 mm in diameter. It was removed using a hot snare. There was evidence of mild diverticulosis involving the distal descending colon and sigmoid colon with a few scattered diverticula in the ascending colon. Retroflexion was performed in the rectum with a normal appearing rectal wall. The endoscope was withdrawn from the patient. The patient tolerated the procedure well and there were no complications. IMPRESSION: 1. Multiple polyps as described above, removed using a combination of a hot snare and hot forceps. 2. Mild diverticulosis involving the descending and sigmoid colon as well as the ascending colon. PLAN AND RECOMMENDATIONS: 1. Discharge home when recovery parameters are met. 2. Follow up biopsy specimen results. 3. High fiber diet. 4. Continue current medications. 5. Consider a repeat colonoscopy in 3 years. TRANSINT:[id number] Voice Confirmation ID: [id number] DOCUMENT ID: [id number] OPERATIVE REPORT [id number] JEROME MAZARIEGOS NATHAN A DO CC: [id number] DICTATION DATE: 10/29/18 1028 [employer] SPECIALIST: 10/29/18 1142 [place] [id number] [facility], [facility]
[2018-10-29 08:10] LABS: HEMATOCRIT 37.6 % (36.0-48.0); HEMOGLOBIN 11.8 g/dL (12-16); MCH 26.6 pg (26.0-34.0); MCHC 31.4 g/dL (31.0-37.0); MCV 84.7 fL (80.0-100.0); MEAN PLATELET VOLUME 9.4 fL (7.4-10.4); RBC 4.44 10x6/uL (4.00-5.40); RDW 15.7 % (11.5-14.5); WBC 8.6 10x3/uL (4.8-10.8)
[2018-10-29 08:18] LABS: INR 1.08 (0.85-1.17); PROTIME 13.5 SECONDS (11.6-15.0)
[2018-10-29 08:19] LABS: APTT 27.9 SECONDS (22.8-39.4)
[2018-10-29 08:29] LABS: ANION GAP 15.7 mmol/L (8-16); CALCIUM 9.5 mg/dL (8.5-10.1); CARBON DIOXIDE 27.6 mmol/L (21.0-32.0); CREATININE - SERUM 1.1 mg/dL (0.6-1.3); POTASSIUM - SERUM 4.3 mmol/L (3.5-5.1)
[2018-10-29 08:30] VITALS: BP 152/84; Ht 165.1 cm; Wt 72.3 kg
== END 2018-10-29 11:30 | disposition home or self-care (01) ==
LOC: D.OPS 08:00
PROVIDERS: Anesthesiology; ATTEND Internal Medicine Gastroenterology
DX: Z12.11 Encounter for screening for malignant neoplasm of colon (principal); D12.2 Benign neoplasm of ascending colon; D12.4 Benign neoplasm of descending colon; D12.3 Benign neoplasm of transverse colon; K57.30 Diverticulosis of large intestine without perforation or abscess without bleeding; Z01.812 Encounter for preprocedural laboratory examination